=== PATIENT | female | born 1970 | race Caucasian/White ===

== ENCOUNTER 2022-03-19 21:46 | Emergency (ER) | payer BC ==
[2022-03-19] MEDS: Albuterol/Ipratropium 3.0-0.5 MG/3 ML Neb Soln ONE (22:34)
[2022-03-19 23:01] LABS: ANION GAP 11.8 mmol/L (5-15); CHLORIDE,CL 102 mmol/L (98-107); ESTIMATED GFR 81 mL/min (>=60); SODIUM,NA 136 mmol/L (136-145)
[2022-03-20] MEDS: Albuterol/Ipratropium 3.0-0.5 MG/3 ML Neb Soln NEB ONE (01:16)
== END 2022-03-20 00:08 | disposition home or self-care (01) ==
LOC: KA.ED 21:46
DX: R06.02 Shortness of breath (principal); F41.9 Anxiety disorder, unspecified; F32.9 Major depressive disorder, single episode, unspecified; D72.828 Other elevated white blood cell count; Z91.030 Bee allergy status; Z88.1 Allergy status to other antibiotic agents; Z91.013 Allergy to seafood; Z79.82 Long term (current) use of aspirin; Z79.899 Other long term (current) drug therapy
CPT/HCPCS: 36415; 80053; 83605; 84484; 85025; 85379; 86140; 93005; 93010; 94640; 99284; 99285; J7620-GY

== ENCOUNTER 2022-06-15 19:00 | Emergency (ER) | payer BC ==
[2022-06-15] MEDS ORDERED: LORazepam 0.5 MG Tab PO ONE (19:22)
== END 2022-06-15 22:05 | disposition home or self-care (01) ==
LOC: KA.ED 19:00
DX: F41.0 Panic disorder [episodic paroxysmal anxiety] (principal); E78.00 Pure hypercholesterolemia, unspecified; I10 Essential (primary) hypertension; J45.909 Unspecified asthma, uncomplicated; K21.9 Gastro-esophageal reflux disease without esophagitis; E66.9 Obesity, unspecified; Z86.16 Personal history of COVID-19; Z91.030 Bee allergy status; Z88.1 Allergy status to other antibiotic agents; Z91.013 Allergy to seafood; Z79.02 Long term (current) use of antithrombotics/antiplatelets; Z79.82 Long term (current) use of aspirin; Z68.41 Body mass index [BMI] 40.0-44.9, adult
CPT/HCPCS: 99284; A9270-GY

== ENCOUNTER 2023-05-01 23:02 | Emergency (ER) | payer BC ==
[2023-05-01] MEDS ORDERED: Sodium Chloride 0.9% 10 ML Syringe FLUSH PRN (23:25)
[2023-05-01 23:38] LABS: BASOPHILS ABSOLUTE AUTO 0.04 10^3/uL (0.00-0.10); BASOPHILS PERCENT AUTO 0.4 % (0.0-1.0); EOSINOPHILS ABSOLUTE AUTO 0.21 10^3/uL (0.10-0.30); EOSINOPHILS PERCENT AUTO 1.9 % (1.0-3.0); HEMOGLOBIN 12.9 g/dL (12.0-16.0); IMMATURE GRAN ABSOLUTE AUTO 0.01 10^3/uL (0.00-0.50); IMMATURE GRAN PERCENT AUTO 0.1 % (0.0-5.0); LYMPHOCYTES ABSOLUTE AUTO 2.82 10^3/uL (1.00-4.00); LYMPHOCYTES PERCENT AUTO 25.2 % (20.0-40.0); MEAN CORPUSCULAR HEMOGLOBIN 27.9 pg (27.0-31.0); MEAN CORPUSCULAR HGB CONC 32.3 g/dL (32.0-36.0); MEAN CORPUSCULAR VOLUME 86.6 fL (82.0-92.0); MEAN PLATELET VOLUME 9.6 fL (7.4-10.4); MONOCYTES ABSOLUTE AUTO 0.95 10^3/uL (0.10-0.80); MONOCYTES PERCENT AUTO 8.5 % (2.0-8.0); NEUTROPHILS ABSOLUTE AUTO 7.18 10^3/uL (2.50-7.00); NEUTROPHILS PERCENT AUTO 63.9 % (50.0-70.0); PLATELET COUNT,PLT 331 10^3/uL (150-400); RED BLOOD CELL COUNT 4.62 10^6/uL (3.80-5.50); RED CELL DISTRIBUTION WIDTH 13.8 % (11.5-14.5); WHITE BLOOD CELL COUNT,WBC 11.21 10^3/uL (5.00-10.00)
[2023-05-01] MEDS: Sodium Chloride 0.9% 1,000 ML IV ONE (23:40)
[2023-05-01 23:53] LABS: ALBUMIN 3.56 g/dL (3.40-5.00); BILIRUBIN TOTAL 0.4 mg/dL (0.2-1.0); CALCIUM 8.8 mg/dL (8.7-10.3); CARBON DIOXIDE,CO2 26.2 mmol/L (21.0-32.0); CREATININE 0.54 mg/dL (0.51-1.17); EST CRCL DRUG DOSING (CG) 116.68 mL/min; PROTEIN TOTAL,TP 7.1 g/dL (6.4-8.2)
[2023-05-02 00:10] LABS: POTASSIUM,K 3.9 mmol/L (3.5-5.1)
[2023-05-02 00:18] LABS: ANION GAP 14.7 mmol/L (5-15)
== END 2023-05-02 00:50 | disposition home or self-care (01) ==
LOC: KA.ED 23:02
DX: T38.3X5A Adverse effect of insulin and oral hypoglycemic [antidiabetic] drugs, initial encounter (principal); J02.0 Streptococcal pharyngitis; J02.8 Acute pharyngitis due to other specified organisms; I10 Essential (primary) hypertension; E78.00 Pure hypercholesterolemia, unspecified; J45.909 Unspecified asthma, uncomplicated; Z79.82 Long term (current) use of aspirin; Z91.030 Bee allergy status; Z88.1 Allergy status to other antibiotic agents; Z91.013 Allergy to seafood; Z86.16 Personal history of COVID-19; Z79.899 Other long term (current) drug therapy
CPT/HCPCS: 36415; 80053; 83690; 85025; 87430; 87651-QW; 96360; 99284-25; J7030